=== PATIENT | male | born 1970 | race Caucasian/White ===

== ENCOUNTER 2019-02-20 04:17 | Emergency (ER) | payer BC, SELFPAY ==
[2019-02-20 04:18] VITALS: BP 162/114; PULSE 78; RESP 15; TEMP 36.9; O2SAT 98; BMI 24.5
--- NOTE | 2019-02-20 04:25 | CT_ITS ---
STUDY: CT ABDOMEN AND PELVIS WITHOUT CONTRAST REASON FOR EXAM: Male, 48 years old. RIGHT RADIATION DOSAGE (If Supplied By Facility): CTDIvol = ( 9.93 ) mGy, DLP = ( 521.15 ) mGycm TECHNIQUE: Transaxial images were obtained from the dome of the diaphragm to the symphysis pubis without oral contrast, and without intravenous contrast. Sagittal and coronal images were reconstructed. Individualized dose optimization techniques were used for this CT. COMPARISON: None. FINDINGS: The visualized lung bases are unremarkable. The visualized portions of the heart are within normal limits. Normal liver. Normal gallbladder and extrahepatic biliary system. Normal spleen. Normal pancreas. Normal bilateral adrenal glands. There is a 7 mm stone at the RIGHT ureterovesical junction causing moderate acute RIGHT hydronephrosis and hydroureter. There is a 2 mm stone in the midpole the LEFT kidney. There is NO LEFT hydronephrosis. Normal visualized stomach. Normal small intestine. Normal colon. The appendix is visualized and appears normal. Normal abdominal aorta. Normal inferior vena cava. Normal retroperitoneum. Normal urinary bladder. There is NO ascites, free air, abscess or adenopathy. Normal abdominal wall. Normal osseous structures. CT/Abdomen/Pelvis without Cont IMPRESSION: There is a 7 mm stone at the RIGHT ureterovesical junction causing moderate acute RIGHT hydronephrosis and hydroureter. There is a 2 mm stone in the midpole the LEFT kidney. There is NO LEFT hydronephrosis. There is NO acute bowel abnormality. There is NO ascites, free air, abscess or adenopathy. Electronically Signed: Jason Aranda MD at 5:03 EST , Service support ,
--- NOTE | 2019-02-20 04:26 | ED.VIS.GEN ---
History of Present Illness Chief Complaint: Flank Pain Informant: Patient Narrative: Stated he started having pain approximately 6 hours ago was at home at rest. He describes right-sided low back and flank pain. Sharp stabbing. No nausea. No blood in his urine. No history of kidney stones. No injury. Current severity is moderate. Not movement related. Denies any anterior abdominal pain. No history of gallstones. Past Medical History - Allergies and Home Meds Allergies/Adverse Reactions: Allergies No Known Allergies Allergy (Verified 02/20/19 04:21) Primary Care Physician: Care Physician,No Primary [Primary Care Provider] - Prior records reviewed: Yes Past Medical History: None Surgical History: - - Finger Lives: With Family Smoking Status: Current every day smoker Alcohol: None Drugs: None Review of Systems General: Denies: Chills, Fever, Sweats Eyes: Denies: Visual changes - bilaterally, Diplopia ENT: Denies: Rhinorrhea, Sore throat Cardiovascular: Denies: Chest pain, Palpitations Respiratory: Denies: Dyspnea, Cough, Dyspnea on exertion Gastrointestinal: Denies: Abdominal pain, Nausea, Vomiting, Diarrhea, Melena, Hematochezia Genitourinary: Denies: Dysuria, Hematuria, Frequency Musculoskeletal: Reports: Back pain. Denies: Extremity Pain Skin: Denies: Rash, Wounds Neurological: Denies: Headache, Weakness, Numbness Physical Exam Vital Signs/Narrative: Vital Signs Temp Pulse Resp BP Pulse Ox 02/20/19 04:18 98.5 F 78 15 162/114 H 98 General: Well nourished, Well developed, No Acute Distress Head: Normocephalic, Atraumatic Eyes: Perrl, EOMI ENT: Moist mucous membranes, No rhinorrhea Neck: Supple, Nontender Cardiovascular: Regular rate, Regular rhythm, No murmurs Respiratory: No distress, CTA bilaterally, Chest nontender Abdomen: Soft, Nontender, Nondistended, Normal bowel sounds Back: Nontender, Normal Inspection Extremities: Nontender, No edema Skin: Normal color, No rash Neurological: Alert, Oriented x3, Cranial nerves II-XII grossly intact, Normal Strength, Normal Sensation Psychological: Normal affect, Normal Mood Diagnostic/Tx/Re-eval - Medical Decision Making Patient given IV fluids Toradol morphine. Lab work CT flank obtained. Lab work shows mild leukocytosis. Renal function shows no major abnormalities. Patient felt much better and pain-free on reevaluation after treatment. CT shows a 7 mm right sided kidney stone at the UVJ with hydro-. 2 mm stone in the left kidney. Patient will be discharged with Percocet, Zofran, Flomax. He may have already passed into his bladder as he is pain-free. I do not feel he needs to be admitted. He will follow-up with urology. Unable to give a urine specimen. I do not think he has a pyelonephritis or infection. I feel the leukocytosis is secondary to pain ED Disposition - Plan for ED Patient: Disposition: Home or Assisted Living Diagnosis: Ureterolithiasis Instructions: KIDNEY STONE w/ Colic Prescriptions: Tamsulosin HCl [Flomax] 0.4 mg PO DAILY #7 cap Prescription Printed Oxycodone HCl/Acetaminophen [Percocet 5/325] 1 - 2 tab PO Q6H PRN PRN 3 Days #12 tab PRN Reason: Pain Prescription Printed Ondansetron [Zofran Odt] 4 mg PO Q8H PRN PRN #10 tab PRN Reason: Nausea Prescription Printed Referrals: Roberto Villela MD [STAFF PHYSICIAN] -
[2019-02-20] MEDS: Morphine 4 MG/ML Syringe IV (04:30)
[2019-02-20] MEDS: Ketorolac 30 MG/ML Syringe IV (04:30)
[2019-02-20] MEDS: 0.9% Normal Saline 1,000 ML 250 ML IV (04:30)
[2019-02-20 04:47] LABS: Absolute Lymphocyte Count 3.28 X10^3/uL (0.83-4.51); Absolute Neutrophil Count 9.5 X10^3/uL (2.0-7.7); Basophil# 0.04 X10^3/uL; Basophil% 0.3 % (0-1); Hematocrit 44.6 % (40-54); Hemoglobin 15.4 g/dL (13.0-16.5); Lymphocyte # 3.28 X10^3/ul (4.0); Lymphocyte % 22.4 % (19-41); Mean Corp Hgb Conc 34.5 g/dL (32-36); Mean Corpuscular Hgb 31.4 pg (27.0-32.0); Mean Corpuscular Volume 90.8 fL (80-94); Monocyte# 1.45 X10^3/uL; Monocyte% 9.9 % (0-10); NRBC Flagged by Analyzer 0 % (0-5); Neutrophil % 64.9 % (47-70); Platelet Count 175 K/mm3 (150-450); RBC Distribution Width CV 12.5 % (11.6-14.6); RBC Distribution Width SD 41.4 fl (35.1-43.9); Red Blood Count 4.91 M/mm3 (4.6-6.2); White Blood Count 14.7 K/mm3 (4.4-11.0)
[2019-02-20 05:01] LABS: Anion Gap 4 (5-15); BUN 21 mg/dL (7-18); BUN/Creat Ratio 17.2 RATIO (10-20); Calcium,Total 8.5 mg/dL (8.5-10.1); Chloride 107 mmol/L (98-107); Creatinine, Serum 1.22 mg/dL (0.70-1.30); EST Glomerular Filtration Rate 67 mL/min (>60); Est Glom Filt Rate - Afr Amer 81 mL/min (>60); Estimated Creatinine Clearance 87.54 ml/min; Glucose 112 mg/dL (74-106); Potassium 4.2 mmol/L (3.5-5.1); Sodium Level 141 mmol/L (136-145)
[2019-02-20 05:24] VITALS: BP 148/82; PULSE 88; RESP 16; O2SAT 97
== END 2019-02-20 05:25 | disposition home or self-care (01) ==
PROVIDERS: Emergency Provider Emergency Medicine
DX: N13.2 Hydronephrosis with renal and ureteral calculous obstruction (principal); F17.200 Nicotine dependence, unspecified, uncomplicated
CPT/HCPCS: 74176; 80048; 85025; 96361; 96374; 96375; 99283; J7030; A4216

== ENCOUNTER 2021-02-24 22:12 | Emergency (ER) | payer OTHER, BC, SELFPAY ==
[2021-02-24 22:13] VITALS: BP 146/94; PULSE 99; RESP 18; TEMP 36.1; O2SAT 96; BMI 29.5
--- NOTE | 2021-02-24 22:32 | ED.RN ---
FRANKY CALLED IN FOR DRUG SCREEN
[2021-02-24] MEDS: Diphth,Pertuss(Acell),Tet Vac 0.5 ML Vial IM (22:49)
[2021-02-24] MEDS: Lidocaine 2% /Epi 1:100 (20ml) 20 ML VIAL INFILT (23:13)
--- NOTE | 2021-02-25 01:37 | CT_ITS ---
STUDY: CT BRAIN WITHOUT CONTRAST REASON FOR EXAM: Male, 50 years old. Posttraumatic headache RADIATION DOSAGE (If Supplied By Facility): CTDIvol = ( 44.99 ) mGy, DLP = ( 846.73 ) mGycm TECHNIQUE: Transaxial CT imaging of the brain was performed without administration of intravenous contrast material. Individualized dose optimization techniques were used for this CT. COMPARISON: No relevant priors. FINDINGS: Mild soft tissue swelling involving the right frontal scalp. No underlying skull fracture. Normal size ventricles and extra-axial spaces for the patient''s age. Normal white matter tracts of the cerebral hemispheres. Normal basal ganglia and thalami. Normal brainstem. Normal cerebellum. There is no intracranial hemorrhage. There are no findings of an acute ischemic infarction. Normal paranasal sinuses. CT/Brain/Head without Contrast IMPRESSION: Right frontal scalp soft tissue swelling with no underlying fracture no acute intracranial abnormality. Electronically Signed: Sly Sanchez MD at 2:10 EST Tel , Service support ,
--- NOTE | 2021-02-25 01:37 | RAD_ITS ---
STUDY: X-RAY - RIGHT HAND REASON FOR EXAM: Male, 50 years old. Posttraumatic right hand pain TECHNIQUE: 3 view(s) of the hand. COMPARISON: None. FINDINGS: Normal radiocarpal articulation. Normal distal radioulnar joint. Normal visualized carpal bones. Normal carpal articulations Normal carpometacarpal articulation of the thumb. Normal second through fifth carpometacarpal joints. There is a minimally displaced transverse fracture through the mid to distal diaphysis of the proximal phalanx of the second digit . Normal metacarpophalangeal joint of the thumb. Normal interphalangeal joint of the thumb. Normal proximal and distal phalanges of the thumb. Normal metacarpophalangeal joints of the second through fifth fingers. Normal proximal and distal interphalangeal joints of the second through fifth fingers. Normal phalanges of the second through fifth fingers. Dorsal soft tissue swelling overlying the hand. RAD/Hand Min 3 Views IMPRESSION: Minimally displaced fracture through the mid to distal diaphysis of the second proximal phalanx Electronically Signed: Sly Sanchez MD at 2:01 EST Tel , Service support ,
--- NOTE | 2021-02-25 03:16 | EDS_ITS ---
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 He denies any loss of consciousness or blood thinner use but sustained a laceration to his head. He also reports pain and swelling in his right hand. He is concerned that he may need sutures and also have a possible broken bone and secondary to this was sent in for evaluation. Patient states he is unsure of his tetanus status. PFSH PFSH Home Medications ondansetron 4 mg PO Q8H PRN PRN #10 tab 02/20/19 [Rx Last Taken Unknown] tamsulosin 0.4 mg PO DAILY #7 cap 02/20/19 [Rx Last Taken Unknown] cephalexin 500 mg PO BID 7 Days #14 cap 02/25/21 [Rx Last Taken Unknown] ibuprofen 600 mg PO Q6H PRN PRN #40 tab 02/25/21 [Rx Last Taken Unknown] Allergy/AdvReac Type Severity Reaction Status Date / Time No Known Allergies Allergy Verified 02/24/21 22:14 Social History Smoking Status: Current every day smoker tobacco type: cigarettes ROS ROS ED Constitutional Constitutional ED: Denies chills or fever(s) Eyes Eyes: Denies change in vision ENT ENT ED: Denies sore throat Cardiovascular Cardiovascular: Denies chest pain Respiratory/Chest Respiratory/Chest: Denies cough or dyspnea Gastrointestinal Gastrointestinal: Denies abdominal pain, diarrhea, nausea or vomiting Genitourinary Genitourinary ED: Denies dysuria Musculoskeletal Musculoskeletal: Reports other Details: Positive right hand pain ; Denies myalgias Integumentary Reports other Details: Positive forehead and hand laceration ; Denies rash Neurologic Neurologic: Denies headache(s) Hematologic/Lymphatic Hematologic/Lymphatic: Denies easy bleeding or easy bruising EXAM Physical Exam Const Vital Signs: 02/24/21 22:13 Temperature 96.9 F L Temperature Source Temporal Pulse Rate 99 Respiratory Rate 18 Blood Pressure 146/94 H Blood Pressure Mean 111 Pulse Ox 96 Oxygen Delivery Method Room Air Positive well nourished and well developed General Appearance ED: well developed HEENT HEENT Narrative: Patient has a jagged 4.5 cm subcutaneous layer deep laceration to the right lateral portion of his forehead. There is minimal ooze of blood and no foreign body. Otherwise no signs of depressed or basilar skull fracture. Eyes PERRL and EOMs intact bilaterally Eyes Narrative: No hyphema Neck supple Neck Narrative: No midline neck pain with palpation no bony deformity or step- off of the cervical spine Resp normal respiratory effort and clear to auscultation bilaterally Cardio regular rate and regular rhythm Extremity Extremity Narrative: Right upper extremity is neurovascularly intact. Patient has soft tissue swelling ecchymosis to the dorsal aspect of the right hand near the second and third metacarpals. He also has soft tissue swelling and ecchymosis along the proximal phalanx of the index finger. There is a 2 cm subcutaneous layer linear laceration along the ulnar aspect of the proximal phalanx of the index finger as well. There is no active bleeding or foreign body no ligamentous or tendon injury. Neuro oriented x3 and CN's II-XII intact bilaterally Sensorium / Orientation: alert Psych mental status grossly normal Skin no rashes or lesions noted Skin Narrative: Soft tissue swelling with ecchymosis and lacerations as documented above MDM MDM MDM Narrative Medical decision making narrative: Secondary to the patient sustaining injuries to his head and hand I did elect to perform a CT to rule out underlying trauma as well as an x-ray. Head CT revealed no acute skull fracture or brain bleed. X-ray of the right hand did show a nondisplaced proximal phalanx fracture to the right index finger consistent with the swelling and pain. The patient had the lacerations closed as documented below. Following this we placed in a metal finger splint for the finger fracture but is otherwise safe for discharge. As he does have a laceration associated with the finger fracture he will be placed on Keflex. However as he does not have ligamentous or tendon injury there is no need for orthopedic consultation. Patient's tetanus status was also updated The patient's forehead was cleaned with chlorhexidine. It was anesthetized using 8 mL of 2% lidocaine with epinephrine in local fashion. The wound was copiously irrigated with normal saline. Then thirteen 5-0 Ethilon sutures were placed in simple interrupted fashion. This brought the wound together good approximation. Patient tolerated procedure well without complication The patient's right hand was cleaned with chlorhexidine. It was anesthetized with 4 mL of 2% lidocaine without epinephrine in local fashion. The wound was copiously irrigated with normal saline. Then six 3-0 Ethilon sutures were placed in simple interrupted fashion. This brought the wound together good approximation. Patient tolerated procedure well without complication. Radiography Diagnostic Testing: Clinical Impression(s) from Imaging Studies Brain CT 02/25/21 01:37 IMPRESSION: Right frontal scalp soft tissue swelling with no underlying fracture no acute intracranial abnormality. Electronically Signed: Sly Sanchez MD at 2:10 EST Tel , Service support , Hand X-Ray 02/25/21 01:37 IMPRESSION: Minimally displaced fracture through the mid to distal diaphysis of the second proximal phalanx Electronically Signed: Sly Sanchez MD at 2:01 EST Tel , Service support , Discharge Plan Triage Chief Complaint: Laceration ED Provider: Juan Allen Dx/Rx/DC Orders Clinical Impression: Closed head injury, Forehead laceration, Finger fracture, right, Laceration of right index finger Instructions: ED Fracture, Finger, Closed, ED Head Injury (Adult), ED Laceration Scalp Stitches or Catrachito Prescriptions: New cephalexin 500 mg capsule 500 mg PO BID 7 Days Qty: 14 RF: 0 ibuprofen 600 mg tablet 600 mg PO Q6H PRN PRN (Reason: pain) Qty: 40 RF: 0 No Action ondansetron 4 MG tablet 4 mg PO Q8H PRN PRN (Reason: Nausea) Qty: 10 RF: 0 tamsulosin 0.4 MG capsule 0.4 mg PO DAILY Qty: 7 RF: 0 Primary Care Provider: Care Physician,No Primary Referrals: Ziggy Alvarado MD [STAFF PHYSICIAN] - 1 Week Care Physician,No Primary [Primary Care Provider] - Activity Restrictions/Additional Instructions: Please follow-up with your family doctor or Workmen's Comp. or return to the emergency department to have your sutures removed in 7 to 10 days Disposition Disposition: Home, Self Care Discharge Date/Time: 02/25/21 03:35
[2021-02-25] MEDS: Ibuprofen 600 MG Tablet PO (03:26)
[2021-02-25] MEDS: Cephalexin 250 MG Capsule 500 MG PO (03:26)
== END 2021-02-25 03:35 | disposition home or self-care (01) ==
PROVIDERS: Emergency Provider Emergency Medicine
DX: S01.81XA Laceration without foreign body of other part of head, initial encounter (principal); S62.640A Nondisplaced fracture of proximal phalanx of right index finger, initial encounter for closed fracture; S61.210A Laceration without foreign body of right index finger without damage to nail, initial encounter; W20.8XXA Other cause of strike by thrown, projected or falling object, initial encounter; Y93.89 Activity, other specified; Y92.513 Shop (commercial) as the place of occurrence of the external cause; Y99.9 Unspecified external cause status; F17.210 Nicotine dependence, cigarettes, uncomplicated
CPT/HCPCS: 12013; 70450; 73130; 90471; 90715; 99285

== ENCOUNTER 2021-05-12 10:00 | Outpatient (RCR) | payer OTHER, BC, SELFPAY ==
--- NOTE | 2021-04-22 11:01 | HP.OTEVAL ---
Patient's Visit Information LISSET SLULIVAN is a 51 year old M, referred to Occupational Therapy by MAGDIEL Mcgrath, with a diagnosis of right IF phalanx fx. Date of Evaluation: 04/22/21 Occupational Therapist: Erin Davenport, MELANIE/Mohan, CHT - Subjective This 51 year old male was seen for OT eval with dx of fracture of right IF phalanx - DOI was on 02/24/21 - pt states he was working and a heavy piece of eq. 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 pt went to ER- pt states hs finger was stitched and splinted and pt [facility]- pt states he had his stitches out about a week and a half later- pt states he does wear the splint at work and he will wrap it to help keep his finger straight. 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 Pt will demo an increase in lateral and tripod pinch by 8# to increase pts independent with opening baggies, containers at PLOF by D/C. Goal:: pt will demo a increase in right IF MP flex by 10*, PIP flex by 50* or greater and increase in DIP flex by 40* or greater to increase pts composite flex to hold small objects and coins without dropping items by d.c Goal:: Pt will report pain no greater than 1/10 with use of affected hand with BADLs and IADLs by d/c. Goal:: pt will demo understanding of scar mtg by end of 3rd session to decrease scar adhesions. - Rehabilitation General Assessment: pt arrives 8 weeks from fx- with limited ROM and strength on dominant hand limiting pts ind. with ADLS, IADls and work tasks- pt would benefit from skilled OT services 3x week for 6 weeks to return pt to PLOF. Today therapist ed. pt on scar mtg, edema control and AROM- once pt has demo increase in ROM will initiate PRE. pt demo understanding and agree to POC. Rehabilitation Potential: Good - Anticipated Interventions A/AAROM/PROM, Strengthening, Edema Control, Scar Care - Visit Plan Frequency: 3x /Week Duration: 6 Weeks TEXT: Thank you for the opportunity to evaluate your patient. For Medicare and Medicare HMO plans, please review the plan of care and approve it. It will need to be FAXED BACK to us at [phone] for Medicare purposes. Please let me know if there are questions or concerns regarding this plan of care. Physician Signature: Date:
--- NOTE | 2021-05-21 11:21 | HP.OTDCSUM ---
It has been my pleasure to treat LISSET SULLIVAN under orders from MAGDIEL Mcgrath, for the diagnosis of right IF phalanx fx for a total of 10 visit(s). Please see the following information for a summary of their discharge status. % Improvement: 85 Objective/Function: R Safety Council Director 106 up from 65#. R Lat Pinch 23# up from 4#. R Tripod Pinch 20# up from 4#. IF PIP flex 80*, after tx 86* , was 30*. 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 Pt will demo an increase in lateral and tripod pinch by 8# to increase pts independent with opening baggies, containers at PLOF by D/C. Goal:: pt will demo a increase in right IF MP flex by 10*, PIP flex by 50* or greater and increase in DIP flex by 40* or greater to increase pts composite flex to hold small objects and coins without dropping items by d.c Goal:: Pt will report pain no greater than 1/10 with use of affected hand with BADLs and IADLs by d/c. Goal:: pt will demo understanding of scar mtg by end of 3rd session to decrease scar adhesions. Plan: Discharge at this time Discharge Comments: pt made great gains in OT and met goals that were set- pt reported IND with all ADLs and IADLs. pt at this time is d.c with [facility] If there are questions or concerns regarding this patient's occupational therapy, please fell free to call me at [phone]. Thank you for the referral of this patient. Sincerely, Erin Davenport, OTR/L, CHT
== END 2021-05-12 19:00 | disposition home or self-care (01) ==
LOC: OT 10:00
PROVIDERS: Referring Provider Physician Assistant Surgical; Visit Provider Physician Assistant Surgical
DX: S62.609D Fracture of unspecified phalanx of unspecified finger, subsequent encounter for fracture with routine healing (principal)
CPT/HCPCS: 97110; 97140; 97166